=== PATIENT | female | born 1955 | race Caucasian/White ===

== ENCOUNTER → 2023-06-24 11:35 | Outpatient (REF) | payer MEDICARE, OTHER, SELFPAY ==
[2023-06-24 12:10] LABS: % Basophils 1.2 % (0-2); % Eosinophils 7.6 % (0-6); % Immature Granulocytes 0.5 % (0-0.5); % Lymphocytes 25.2 % (20.5-51.1); % Monocytes 6.7 % (1.7-9.3); % Neutrophils 58.8 % (42.2-75.2); Absolute Basophils 0.1 10^3/uL (0-0.2); Absolute Eosinophils 0.3 10^3/uL (0-0.7); Absolute Lymphocytes 1.1 10^3/uL (1.2-3.4); Absolute Monocytes 0.3 10^3/uL (0.1-0.6); Absolute Neutrophils 2.5 10^3/uL (1.4-6.5); Hematocrit 39.5 % (37.0-47.0); Hemoglobin 13.6 g/dL (12.0-16.0); Mean Corp Hgb Conc. 34.4 g/dL (33.0-37.0); Mean Corpuscular Hgb 30.7 pg (27.0-31.0); Mean Corpuscular Volume 89.2 fL (81.0-99.0); Mean Platelet Volume 10.2 fL (7.4-10.4); Nucleated Red Blood Cells % 0 %; Platelet Count 256 10^3/uL (130-400); Red Blood Cell Count 4.43 10^6/uL (4.20-5.40); Red Cell Dist. Width 12.9 % (11.5-14.5); White Blood Cell Count 4.2 10^3/uL (4.8-10.8)
[2023-06-24 12:23] LABS: Erythrocyte Sed Rate 34 mm/hour (0-20)
[2023-06-24 13:15] LABS: ALT (SGPT) 21 U/L (0-35); AST (SGOT) 30 U/L (14-36); Albumin 4.7 g/dl (3.5-5.0); Alkaline Phosphatase 110 U/L (38-126); Blood Urea Nitrogen 25 mg/dl (7-17); Calcium 10.1 mg/dl (8.4-10.2); Carbon Dioxide 23 mmol/L (22-30); Chloride 106 mmol/L (98-107); Glucose 94 mg/dl (70-99); Potassium 4.6 mmol/L (3.5-5.1); Sodium 138 mmol/L (135-145); Total Bilirubin 0.8 mg/dl (0.2-1.3); Total Protein 8.2 g/dl (6.3-8.2); eGFR > 60.00
[2023-06-24 13:17] LABS: C-Reactive Protein < 5.00 mg/L (0.0-10.00)
[2023-06-26 17:51] LABS: Quantiferon Mitogen minus NIL 7.33 IU/mL; Quantiferon NIL 0.02 IU/mL; Quantiferon TB Gold Plus Negative (Negative)
[2023-06-26 21:02] LABS: Hepatitis B Surface Antigen Negative (Negative)
[2023-06-26 21:19] LABS: Hepatitis B Surface Antibody Negative; Hepatitis C Antibody Negative (Negative)
[2023-06-27 15:12] LABS: Hepatitis B Core Ab, Total Negative (Negative)
== END ==
LOC: REG 11:35
PROVIDERS: ATTENDING PHYSICIAN Internal Medicine Rheumatology; FAMILY PHYSICIAN Family Medicine
DX: M06.9 Rheumatoid arthritis, unspecified (principal); J84.9 Interstitial pulmonary disease, unspecified; Z79.899 Other long term (current) drug therapy; Z11.59 Encounter for screening for other viral diseases
CPT/HCPCS: 36415; 80053; 85025; 85652; 86140; 86480; 86704; 86706; 86803; 87340

== ENCOUNTER → 2023-09-19 12:15 | Outpatient (REF) | payer MEDICARE, OTHER, SELFPAY ==
[2023-09-19 14:05] LABS: Hepatitis B Surface Antigen Negative (Negative)
[2023-09-19 14:22] LABS: HIV Combo Negative (Negative); Hepatitis B Surface Antibody Negative; Hepatitis C Antibody Negative (Negative)
[2023-09-19 15:40] LABS: Hepatitis A Antibody, Total Negative (Negative)
[2023-09-21 15:23] LABS: Quantiferon Mitogen minus NIL 9.98 IU/mL; Quantiferon NIL 0.02 IU/mL; Quantiferon Plus TB1 minus NIL 0.02 IU/mL (<=0.34); Quantiferon Plus TB2 minus NIL 0.02 IU/mL (<=0.34); Quantiferon TB Gold Plus Negative (Negative)
== END ==
LOC: REG 12:15
PROVIDERS: ATTENDING PHYSICIAN Internal Medicine Rheumatology; FAMILY PHYSICIAN Internal Medicine Rheumatology
DX: L40.50 Arthropathic psoriasis, unspecified (principal); M05.79 Rheumatoid arthritis with rheumatoid factor of multiple sites without organ or systems involvement; M32.9 Systemic lupus erythematosus, unspecified; M35.00 Sjogren syndrome, unspecified; M15.0 Primary generalized (osteo)arthritis; E85.9 Amyloidosis, unspecified; C90.00 Multiple myeloma not having achieved remission; I50.9 Heart failure, unspecified; E03.9 Hypothyroidism, unspecified; Z79.899 Other long term (current) drug therapy; Z20.5 Contact with and (suspected) exposure to viral hepatitis; Z20.6 Contact with and (suspected) exposure to human immunodeficiency virus [HIV]; Z20.1 Contact with and (suspected) exposure to tuberculosis; R94.5 Abnormal results of liver function studies
CPT/HCPCS: 36415; 86480; 86706; 86708; 86803; 87340; 87389

== ENCOUNTER → 2023-10-06 13:09 | Outpatient (REF) | payer MEDICARE, OTHER, SELFPAY ==
[2023-10-06 14:12] LABS: % Basophils 0.7 % (0-2); % Eosinophils 3.2 % (0-6); % Immature Granulocytes 0.4 % (0-0.5); % Lymphocytes 24.2 % (20.5-51.1); % Monocytes 6.8 % (1.7-9.3); % Neutrophils 64.7 % (42.2-75.2); Absolute Basophils 0.1 10^3/uL (0-0.2); Absolute Eosinophils 0.2 10^3/uL (0-0.7); Absolute Lymphocytes 1.8 10^3/uL (1.2-3.4); Absolute Monocytes 0.5 10^3/uL (0.1-0.6); Absolute Neutrophils 4.8 10^3/uL (1.4-6.5); Hematocrit 34.7 % (37.0-47.0); Hemoglobin 11.8 g/dL (12.0-16.0); Mean Corpuscular Hgb 30.9 pg (27.0-31.0); Mean Corpuscular Volume 90.8 fL (81.0-99.0); Mean Platelet Volume 10.3 fL (7.4-10.4); Nucleated Red Blood Cells % 0 %; Platelet Count 248 10^3/uL (130-400); Red Blood Cell Count 3.82 10^6/uL (4.20-5.40); Red Cell Dist. Width 11.9 % (11.5-14.5); White Blood Cell Count 7.4 10^3/uL (4.8-10.8)
[2023-10-06 14:26] LABS: Erythrocyte Sed Rate 37 mm/hour (0-20)
[2023-10-06 14:38] LABS: ALT (SGPT) 19 U/L (0-35); AST (SGOT) 30 U/L (14-36); Albumin 4.6 g/dl (3.5-5.0); Alkaline Phosphatase 101 U/L (38-126); Blood Urea Nitrogen 23 mg/dl (7-17); Calcium 9.3 mg/dl (8.4-10.2); Carbon Dioxide 30 mmol/L (22-30); Chloride 100 mmol/L (98-107); Creatine Phosphokinase 147 U/L (30-135); Glucose 84 mg/dl (70-99); Potassium 4.1 mmol/L (3.5-5.1); Sodium 138 mmol/L (135-145); Total Bilirubin 0.5 mg/dl (0.2-1.3); Total Protein 7.4 g/dl (6.3-8.2); eGFR 54.73
[2023-10-06 14:39] LABS: C-Reactive Protein < 5.00 mg/L (0.0-10.00)
[2023-10-08 23:08] LABS: IgG Subclass 4 10 mg/dL (1-123)
[2023-10-09 00:08] LABS: IgG 825 mg/dl (700-1600)
== END ==
LOC: REG 13:09
PROVIDERS: ATTENDING PHYSICIAN Internal Medicine Rheumatology; FAMILY PHYSICIAN Family Medicine
DX: M06.9 Rheumatoid arthritis, unspecified (principal); J84.9 Interstitial pulmonary disease, unspecified; Z79.899 Other long term (current) drug therapy; E78.5 Hyperlipidemia, unspecified
CPT/HCPCS: 36415; 80053; 82550; 82784; 82787; 85025; 85652; 86140

== ENCOUNTER 2024-11-12 14:14 | Emergency (ER) | payer MEDICARE, OTHER, SELFPAY ==
[2024-11-12 14:44] LABS: Hematocrit 37.4 % (37.0-47.0); Hemoglobin 13.0 g/dL (12.0-16.0); Mean Corp Hgb Conc. 34.8 g/dL (33.0-37.0); Mean Corpuscular Volume 90.1 fL (81.0-99.0); Nucleated Red Blood Cells % 0 %; Platelet Count 304 10^3/uL (130-400); Red Cell Dist. Width 11.9 % (11.5-14.5)
[2024-11-12 15:03] LABS: COVID-19 Antigen Negative (Negative)
[2024-11-12 15:05] LABS: ALT (SGPT) 22 U/L (0-35); AST (SGOT) 33 U/L (14-36); Albumin 4.3 g/dl (3.5-5.0); Alkaline Phosphatase 94 U/L (38-126); Blood Urea Nitrogen 22 mg/dl (7-17); Calcium 10.2 mg/dl (8.4-10.2); Carbon Dioxide 26 mmol/L (22-30); Chloride 100 mmol/L (98-107); Glucose 98 mg/dl (70-99); Potassium 4.2 mmol/L (3.5-5.1); Sodium 134 mmol/L (135-145); Total Protein 7.8 g/dl (6.3-8.2); eGFR 54.39
[2024-11-12 15:18] LABS: Troponin I < 0.012 ng/ml
--- NOTE | 2024-11-12 17:58 | ED.GENMED ---
History of Present Illness
General
Chief Complaint: Breathing Problem
Source: patient
Exam Limitations: none
Time Seen by Provider: 11/12/24 17:52
History of Present Illness
History of Present Illness:
69-year-old female states she has felt off for weeks if not longer. Mostly complaining of some shortness of breath. Intermittent low pulse ox's with rapid heartbeats. Generally fatigued. Sleeping a lot. Slight cough at times. No hemoptysis no
chest pain or pleuritic pain. No significant fever.
Past History
Past History
ED Past Medical History: CHF, Valvular disease and Other (Lupus/Sjogren's)
ED Past Surgical History: Orthopedic
Social History
Tobacco: Non-smoker
Personal:
Living: with family
Employment: Retired
Review of Systems
Review of Systems
All Other Systems: Not applicable
Respiratory: Reports cough; Denies hemoptysis
Cardiac: Denies chest pain or syncope
Phy Exam
Physical Exam
Physical Exam:
GENERAL: Alert and oriented in no apparent distress
EYE: Orbits normal.
NECK: Supple, no significant adenopathy.
ENT: Pharynx without erythema
CARDIAC: Regular rate and rhythm without any obvious murmurs.
LUNGS: Clear breath sounds,normal
ABDOMEN: Soft, without focal tenderness or distention
NEUROLOGICAL: Alert and oriented , grossly non-focal
SKIN: Warm and dry, no rash or lesion, no discoloration, skin intact.
MUSCULOSKELETAL: No edema,no deformity.Good color
PSYCH: Normal and appropriate interaction.
Scores
Heart Failure Risk
Heart Failure Risk Score: Not Applicable
Course
Orders/Labs/Results
Orders:
Orders
11/12/24 14:21
Electrocardiogram (*1) Urgent
Reason for Study: Shortness of Breath
EKG- Treatment ONCE
CR Chest - 2 Views Urgent
Comment:
Reason For Exam: SOB
11/12/24 14:36
COVID-19 Antigen Urgent
Source: Nasal Swab
Complete Blood Count/With Diff Urgent
Comprehensive Metabolic Panel Urgent
NT-proBNP Urgent
TSH Reflex To Free T4 Urgent
Comment: ADD ON
Troponin I Urgent
Influenza A+B Rapid Molecular Urgent
ALAINA Source: Nasal Swab
Specimen Description:
11/12/24 18:12
Add On- LAB Urgent
Tests Added?: tsh reflex t4
11/12/24 18:21
D-Dimer Urgent
11/12/24 19:28
CT Chest PE Study Urgent
Comment:
Reason For Exam: Short of breath/positive dimer
US Periph Venous LOWER Ext Rg Urgent
Comment:
Reason For Exam: Short of breath/positive dimer
11/12/24 20:56
Dexamethasone Sod Phosphate [Decadron] 8 mg IV NOW STA
Doxycycline [Vibramycin] 100 mg PO NOW STA
Abnormal Lab Results
11/12/24 11/12/24
14:36 18:21
RBC 4.15 L 10^6/uL
(4.20-5.40)
MCH 31.3 H pg
(27.0-31.0)
Absolute Lymphs (auto) 0.7 L 10^3/uL
(1.2-3.4)
Absolute Monos (auto) 0.7 H 10^3/uL
(0.1-0.6)
Lymphocytes % 11.9 L %
(20.5-51.1)
Monocytes % 12.0 H %
(1.7-9.3)
Eosinophils % 10.0 H %
(0-6)
D-Dimer 3.93 H ug/mlFEU
(0.00-0.50)
Sodium 134 L mmol/L
(135-145)
BUN 22 H mg/dl
(7-17)
Creatinine 1.1 H mg/dL
(0.6-1.0)
11/12/24 14:36
11/12/24 14:36
Vital Signs
Initial and Last Documented VS:
Initial Vital Signs
Temp Pulse Resp Pulse Ox
99.0 F 73 20 96
11/12/24 14:16 11/12/24 14:16 11/12/24 14:16 11/12/24 14:16
Last Documented Vital Signs
Temp Pulse Resp BP Pulse Ox
99.0 F 73 20 135/76 92
11/12/24 14:16 11/12/24 14:16 11/12/24 14:16 11/12/24 21:00 11/12/24 21:00
MDM/Problems Addressed
Differential Diagnosis Includes:
Patient has had symptoms for weeks plus. She is in no distress. Her exam is unremarkable. Not describing anginal symptoms. She is clinically not in heart failure. Chest x-ray and proBNP support a lack of heart failure. She is describing some
infectious symptoms however nontoxic, clear lungs, normal white count and negative chest x-ray. Will check TSH. With shortness of will check D-dimer.
*Radiology
Radiology exam reviewed: radiology read reviewed (Negative chest x-ray)
*Pulse Oximetry
SaO2: 96
Oxygen Mode of Delivery: Room air
Patient hypoxic: no
*EKG
Interpreted by ED Provider?: Yes
Interpretation: abnormal
Comparison EKG: changes noted
Heart Rate: 75
Rate: normal
Rhythm: sinus
Alston: normal axis
Interval: normal interval
QRS Pattern: normal QRS
Ischemia: non-specific ST changes
*Critical Care Note
Total Time (30-74mins, 75-104mins- exclusive of procedures): Not Applicable
Data Reviewed
Review of Other/Old Records Reveals: Labs, Records and Other (Echocardiogram. Moderate MR 2018)
Update Note
Update Note:
Workup unremarkable except for D-dimer positive. Will check CT and leg ultrasounds. Niccoli very stable. If negative discharge. Will cover with antibiotics given her underlying lung disease and short course of steroids. She apparently has had
some intermittent wheezing with this.
ED Attending Note
-
Portions of this chart may have been created with voice recognition software.� Occasional wrong word or��sound alike� substitutions may have occurred due to the inherent limitations of voice recognition software.
Discharge Plan
Departure
Patient Disposition: Home (Routine Discharge)
Date of Disposition: 11/12/24
Time of Disposition: 21:03
Patient with high blood pressure during this ER visit?: No
Discharge Problem:
Ongoing dyspnea/fatigue
Instructions: Fatigue (DC), Shortness of Breath (Dyspnea) (DC), BLOOD PRESSURE
Prescriptions:
New
doxycycline hyclate 100 mg capsule
100 mg PO BID 10 Days Qty: 20 0RF
prednisone 10 mg tablet
10 mg PO DAILY Qty: 20 0RF
Rx Instructions:
4 tablets day 1. Then 1 less tablet every other day until gone
albuterol sulfate [Ventolin HFA] 90 mcg/actuation HFA aerosol inhaler
2 inh inhalation QID PRN (Reason: shortness of breath or wheezing) Qty: 8.5 0RF
No Action
oxycodone-acetaminophen [Percocet] 1 EACH tablet
1 tab PO Q6H PRN (Reason: PAIN)
gabapentin 800 MG tablet
800 mg PO BID
hydroxychloroquine 200 MG tablet
200 mg PO BID
metoprolol tartrate 25 MG tablet
25 mg PO DAILY
eszopiclone [Lunesta] 3 MG tablet
1.5 mg PO HS PRN (Reason: SLEEP)
furosemide 40 mg Tablet
40 mg PO BID
topiramate 25 mg Tablet
25 mg PO HS
cholecalciferol (vitamin D3) [Vitamin D3] 25 mcg (1,000 unit) Tablet
25 mcg PO DAILY
Jardiance 10 mg Tablet
10 mg PO DAILY
Xtampza ER 9 mg Cap,Sprinkl,Er12hr(Dont Crush)
9 mg PO HS
ibuprofen [Advil] 200 MG tablet
600 mg PO TID
Rx Instructions:
*take with food
*do not take within 2h of asa---blocks absorption
Referrals:
NONE,* [Active, Internal Medicine]
Activity Restrictions/Additional Instructions:
Follow-up closely with your primary physician
Your prescriptions were sent to your pharmacy
Start the oral prednisone and antibiotics tomorrow
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
Interventions
Interventions:
*Risk Screen - Suicide Last Done: 11/12/24 14:24
*General Assessment Last Done: 11/12/24 18:23
*Neglect/Abuse Screening Last Done: 11/12/24 14:24
*ED- Fall Risk Assessment Last Done: 11/12/24 18:23
*ED COVID-19 Vaccine History Last Done: 11/12/24 18:23
*Nursing Disposition Last Done: 11/12/24 21:33
ED- Cardiac Assessment Last Done: 11/12/24 18:23
ED- Pulmonary Assessment Last Done: 11/12/24 18:23
Discharge Date and Time
Discharge Date/Time: 11/12/24 21:34
Print Language: POLISH
[2024-11-12 18:15] VITALS: BP 127/76
[2024-11-12 18:22] VITALS: BMI 31.5
[2024-11-12 18:40] LABS: D-Dimer 3.93 ug/mlFEU (0.00-0.50)
[2024-11-12 19:42] VITALS: BP 122/60
[2024-11-12 21:00] VITALS: BP 135/76
[2024-11-12] MEDS: VIBRAMYCIN 100 MG PO (21:09)
[2024-11-12] MEDS: DECADRON 8 MG IV (21:09)
== END 2024-11-12 21:34 | disposition home or self-care (01) ==
LOC: EMR 14:14
PROVIDERS: Emergency Medicine; EMERGENCY PHYSICIAN Emergency Medicine; FAMILY PHYSICIAN Family Medicine
DX: R06.00 Dyspnea, unspecified (principal); R53.83 Other fatigue; R79.1 Abnormal coagulation profile; I50.9 Heart failure, unspecified; M35.00 Sjogren syndrome, unspecified
CPT/HCPCS: 71046; 71275; 80053; 83880; 84443; 84484; 85025; 85379; 87502; 87811; 93005; 93970; 96374; 99285; Q9967